=== PATIENT | female | born 1990 | race Hispanic/Latino ===

== ENCOUNTER 2023-09-21 10:45 | Day surgery (SDC) | payer OTHER ==
[2023-09-20 15:18] LABS: BASOPHILS # (AUTO) 0.04 K/uL (0.00-0.20); BASOPHILS % (AUTO) 0.5 % (0.0-5.0); EOSINOPHILS % (AUTO) 3.6 % (0.0-8.0); HEMATOCRIT 38.9 % (36-48); IMMATURE GRANULOCYTE ABSOLUTE 0.02 K/uL (0-1); LYMPHOCYTES # (AUTO) 1.5 K/uL (1.0-4.8); LYMPHOCYTES % (AUTO) 18.1 % (21.0-51.0); MEAN CORPUSCULAR HEMOGLOBIN 28.1 pg (27.0-33.0); MEAN CORPUSCULAR HGB CONC 32.9 g/dL (32.0-36.0); MEAN CORPUSCULAR VOLUME 85.3 fL (79-99); MONOCYTES # (AUTO) 0.5 K/uL (0.1-1.0); MONOCYTES % (AUTO) 5.7 % (3.0-13.0); NEUTROPHILS # (AUTO) 6.1 K/uL (1.8-7.7); NEUTROPHILS % (AUTO) 71.9 % (40.0-77.0); PLATELET COUNT (AUTO) 406 K/uL (130-400); RED BLOOD CELL COUNT(AUTO) 4.56 MIL/uL (4.00-5.50); RED CELL DISTRIBUTION WIDTH 17.9 % (11.0-15.5); WHITE BLOOD COUNT (AUTO) 8.4 K/uL (4.8-10.8)
[2023-09-20 15:56] VITALS: BP 85/51; PULSE 70; RESP 18
[2023-09-21] VITALS (18 sets, daily range): BP systolic 99–133; BP diastolic 52–75; PULSE 78–94; RESP 12–18
[~2023-09-21] VITALS: Ht 167.6 cm; Wt 62.3 kg
[~2023-09-21 10:45] MED LIST: FERR325T29 PO; LORA0.5T83 PO; PNV1CAPS21 PO
[2023-09-21] MEDS ORDERED: LACTATED RINGERS 1000ML 1,000 ML IV ONE (10:59)
[2023-09-21] MEDS ORDERED: CEFAZOLIN SODIUM 2 GM VIAL ONE (10:59)
[2023-09-21] MEDS ORDERED: CHOL50009 PO (11:15)
[2023-09-21] MEDS ORDERED: GLYCOPYRROLATE 1 MG/5 ML SYRINGE ONE (13:04)
[2023-09-21] MEDS ORDERED: NEOSTIGMINE 5MG/5ML SYR IV ONE (13:04)
[2023-09-21] MEDS ORDERED: MIDAZOLAM HCL 1 MG/ML 2ML VIAL ONE (13:04)
[2023-09-21] MEDS ORDERED: SUCCINYLCHOLINE CHLORIDE 20 MG/ML 10 ML VIAL ONE (13:04)
[2023-09-21] MEDS ORDERED: DEXAMETHASONE SOD PHOSPHATE 10MG/ML 1ML VIAL ONE (13:04)
[2023-09-21] MEDS ORDERED: ONDANSETRON 4MG INJ ONE ×2 (13:04→14:10)
[2023-09-21] MEDS ORDERED: ROCURONIUM 10MG/1ML SYR 10 MG/ML ML ONE (13:04)
[2023-09-21] MEDS ORDERED: LIDOCAINE PF 100MG/5ML (2%) SYRINGE 5ML ONE (13:04)
[2023-09-21] MEDS ORDERED: FENTANYL CITRATE PF 50 MCG/1 ML 2ML VIAL ONE (13:05)
[2023-09-21] MEDS ORDERED: PROPOFOL 10 MG/ML 20ML VIAL IV ONE (13:05)
[2023-09-21] MEDS ORDERED: CEFAZOLIN SODIUM 2 GM VIAL IVPB ONE (13:42)
[2023-09-21] MEDS ORDERED: MISOPROSTOL 100 MCG TABLET ONE (13:43)
[2023-09-21] MEDS ORDERED: EPHEDRINE SULFATE 50 MG/ML AMPULE ONE (13:44)
[2023-09-21] MEDS ORDERED: MEPERIDINE-PF 25 MG/ML SYG ONE ×2 (14:10→14:39)
== END 2023-09-21 15:45 | disposition home or self-care (01) ==
LOC: DAH 10:45
PROVIDERS: ATTEND Obstetrics & Gynecology
DX: O02.1 Missed abortion (principal); R10.2 Pelvic and perineal pain; F41.9 Anxiety disorder, unspecified; Z79.01 Long term (current) use of anticoagulants; Z79.899 Other long term (current) drug therapy; Z82.49 Family history of ischemic heart disease and other diseases of the circulatory system; Z82.3 Family history of stroke
CPT/HCPCS: 86900; 85025; 86850; 86901; 36415; 59820; 88305; A6260; A4663; A4606; J7120; J3010; J3490 ×2; J1100; J2710; J0330; J2001; J2250; J2704; J2405 ×2; J2175 ×2; J0690 ×2; A4315; A4215; A4223; A4222; A4221; A4600